=== PATIENT | female | born 1965 | race Asian ===

== ENCOUNTER 2020-12-26 08:25 | Day surgery (SDC) | payer OTHER, SELFPAY ==
[~2020-12-26] VITALS: Ht 154.9 cm; Wt 70.3 kg
[2020-12-26] MEDS ORDERED: fentaNYL citrate 0.05 MG/ML VIAL ONE (12:03)
[2020-12-26] MEDS ORDERED: LIDOCAINE 2% 100 MG/5 ML UJET TP ONE (12:03)
[2020-12-26] MEDS ORDERED: fentaNYL citrate 0.05 MG/ML VIAL IVP ONE (12:50)
== END 2020-12-26 12:55 | disposition home or self-care (01) ==
LOC: MDS 08:25 → MMU 08:25 → MDS 12:55
PROVIDERS: ATTEND Internal Medicine Gastroenterology
DX: Z12.11 Encounter for screening for malignant neoplasm of colon (principal); D12.4 Benign neoplasm of descending colon; D12.5 Benign neoplasm of sigmoid colon; E11.9 Type 2 diabetes mellitus without complications; Z79.84 Long term (current) use of oral hypoglycemic drugs; Z20.828 Contact with and (suspected) exposure to other viral communicable diseases; Z79.899 Other long term (current) drug therapy
CPT/HCPCS: 45385; J3010; U0003